=== PATIENT | female | born 1950 | race Hispanic/Latino ===

== ENCOUNTER 2021-07-31 11:30 | Inpatient (IN) | payer OTHER ==
--- NOTE | 2021-07-31 11:57 | RAD REPORT ---
EXAM DESCRIPTION: CT - Ct Stroke Brain Wo Cont - 07/31/2021 11:49 am CLINICAL HISTORY: Confusion/alteration of awareness COMPARISON: none TECHNIQUE: Computed axial tomography of the head was obtained. All CT scans are performed using dose optimization technique as appropriate and may include automated exposure control or mA/KV adjustment according to patient size. FINDINGS: An intracranial bleed is not seen . The ventricles are normal in caliber. No extra-axial fluid collection is noted. Small calcifications are present within the region of right thalamus/internal capsule. These are like ly not significant Fluid within the sinuses/ mastoids is not seen. IMPRESSION: No acute intracranial abnormality is seen. If patient's symptoms persist MRI of the bra in would be recommended. Nurse Spann of the emergency room was notified at 11:50 a.m. July 31, 2021
[2021-07-31 12:05] LABS: Absolute Lymphocytes (CBC) 2.7 K/uL (0.7-4.9); Basophils % 0.8 % (0-1.3); Hematocrit 42.9 % (36.0-45.0); Lymphocytes % 34.2 % (15.3-44.8); MPV 7.4 fL (7.6-11.3); RBC Red Blood Cell Count 4.62 M/uL (3.86-4.86)
[2021-07-31 12:06] LABS: Protime INR 0.89
[2021-07-31 12:18] LABS: ALT/SGPT 28 U/L (12-78); AST/SGOT 28 U/L (15-37); Albumin 4.2 g/dL (3.4-5.0); Alkaline Phosphatase 65 U/L (45-117); BUN Blood Urea Nitrogen 18 mg/dL (7-18); Bicarbonate 22 mmol/L (21-32); Bilirubin Direct 0.2 mg/dL (0-0.2); Bilirubin Total 0.9 mg/dL (0.2-1.0); Glucose Level 119 mg/dL (74-106); Magnesium 2.4 mg/dL (1.8-2.4); NT PRO-BNP 19 pg/mL (<125); Potassium 4.1 mmol/L (3.5-5.1); Protein, Total 8.3 g/dL (6.4-8.2); Sodium Level 141 mmol/L (136-145); Troponin (Emerg Dept Use Only) < 0.02 ng/mL (0.0-0.045)
--- NOTE | 2021-07-31 12:58 | RAD REPORT ---
EXAM DESCRIPTION: RAD - Chest Single View - 07/31/2021 12:34 pm CLINICAL HISTORY: DYSPNEA COMPARISON: CHEST PA AND LAT 2 VIEW dated 01/13/2010 FINDINGS: Lines: None. Lungs: No evidence of edema or pneumonia. Pleural: No significant pleural effusions or pneumothorax. Cardiac: The heart size is within normal limits. Bones: No acute fractures. Other: Battery pack overlying the left upper chest. IMPRESSION: No acute cardiopulmonary disease.
--- NOTE | 2021-07-31 13:10 | RAD REPORT ---
EXAM DESCRIPTION: MRI - Brain Wo Cont - 07/31/2021 1:01 pm CLINICAL HISTORY: amnesia COMPARISON: No comparisons TECHNIQUE: Sagittal T1-weighted images were obtained along with PD/heavily T2-weighted and T2-FLAIR images. Axial DWI and ADC mapping sequences were also obtained along with coronal heavily T2-weighted images were obtained. FINDINGS: No intracranial hemorrhage, mass or acute infarction. There is no edema or shift of midlin e structures. No extra-axial fluid collections. Signal voids are seen as a normal finding in the marc r intracranial vessels. Mild chronic small vessel ischemic changes. Mastoid air cells and paranasal sinuses are clear. IMPRESSION: No acute intracranial abnormality. Specifically, no evidence of acute infarct. Mild arborist jennifer small vessel ischemic changes.
--- NOTE | 2021-07-31 13:41 | ER ---
Nurse's Notes [facility] Name: Vanda Monge Age: 71 yrs Sex: Female : 1950 Arrival Date: 07/31/2021 Time: 11:31 Bed 17 Private MD: Wilber Monge E Diagnosis: Transient global amnesia Presentation: 07/31 11:55 Chief complaint: Spouse and/or significant other states: states that when he ss saw patient at home this morning, around 1030 she was seen sobbing and confused, not remembering her cardiology appointment yesterday and not knowing what year it was. Last known well was around 2130 yesterday evening. gave patient Aspirin 81 mg PO x 4 tablets. Coronavirus screen: Client denies travel out of the [place] in the last 14 days. Ebola Screen: Patient denies exposure to infectious person. Patient denies travel to an Ebola-affected area in the 21 days before illness onset. Initial Sepsis Screen: Does the patient meet any 2 criteria? No. Patient's initial sepsis screen is negative. Does the patient have a suspected source of infection? No. Patient's initial sepsis screen is negative. Risk Assessment: Do you want to hurt yourself or someone else? Patient reports no desire to harm self or others. Onset of symptoms was July 30, 2021. 11:55 Method Of Arrival: Wheelchair ss 11:55 Acuity: SHARON 2 ss 12:10 An acute neurological deficit is present. ss 12:10 Pre-hospital glucose is not applicable to this patient. ss Stroke Activation: Symptom onset > 6 hours Physician: Stroke Attending; Name: ; Notified At: ; Arrived At: Physician: Chief Stroke Resident; Name: ; Notified At: ; Arrived At: Physician: Stroke Resident; Name: ; Notified At: ; Arrived At: Physician: ED Attending; Name: ; Notified At: ; Arrived At: Physician: ED Resident; Name: ; Notified At: ; Arrived At: 11:55 Symptom onset was <24 hours and greater than >12 H ss Historical: - Allergies: 12:18 No Known Allergies; ss - Home Meds: 12:18 telmisartan 40 mg oral tab 1 tab once daily [Active]; ss - PMHx: 12:18 Hypertensive disorder; ss - PSHx: 12:18 tubal ligation; ss - Immunization history:: Client reports receiving the 2nd dose of the Covid vaccine. - Social history:: Smoking status: Patient denies any tobacco usage or history of. Screenin:31 Patient has been NPO before screening. The patient is alert, able to follow commands. ch5 The patient does not exhibit slurred or garbled speech The patient is not exhibiting difficulty speaking. The patient does not exhibit difficulty understanding words. The patient is able to swallow own secretions with no drooling or need for suction. Patient tolerated one teaspoon of water. No drooling, immediate coughing, gurgling, or clearing of the throat was noted. The patient tolerated 90mL of water. No drooling, immediate coughing, gurgling, or clearing of the throat was noted. The patient passed the bedside swallow screening. Oral medications may be given as ordered. Contact Physician for further diet orders. Assessment: 11:38 Reassessment: Code stroke called. 11:38 VAN Scoring: Arm Drift: Patients demonstrates NO arm weakness. Patient is VAN Negative. Visual Disturbance: No visual disturbance noted. Aphasia: No aphasia noted. Neglect: No neglect noted. T-PA (Activase) Screening: Contraindications: Patient reports onset of signs and symptoms of stroke greater than 6 hours ago: Yes. Vital Signs: 12:10 BP 145 / 97; Pulse 86; Resp 16; Temp 98.1(TE); Pulse Ox 99% on R/A; Weight 68.04 kg; ss Height 5 ft. 3 in. (160.02 cm); Pain 0/10; 13:00 BP 162 / 111; Pulse 90; Resp 18; Pulse Ox 100% on R/A; ch5 13:23 BP 157 / 104; Pulse 93; Resp 18; Pulse Ox 100% on R/A; ch5 13:48 BP 143 / 95; Pulse 92; Resp 16; Pulse Ox 100% on R/A; ch5 17:08 BP 121 / 81; Pulse 91; Resp 18; Pulse Ox 100% on R/A; ch5 12:10 Body Mass Index 26.57 (68.04 kg, 160.02 cm) NIH Stroke Scale Scores: 11:38 NIHSS Score: 0 11:40 NIHSS Score: 2 ch5 12:03 NIHSS Score: 1 jr8 ED Course: :31 Patient arrived in ED. am2 11:31 Wilber Monge MD is Private Physician. am2 11:38 Thermoregulation: warm blanket given to patient. ss 11:42 Brandon Dempsey PA is PHCP. jr8 11:42 Jonathan Germain MD is Attending Physician. jr8 11:49 Ct Stroke Brain Wo Cont In Process Unspecified. EDMS 11:53 Solis Granado, RN is Primary Nurse. ch5 11:55 Arm band placed on right wrist. ss 12:01 Triage completed. ss 12:34 XRAY Chest (1 view) In Process Unspecified. EDMS 13:01 MRI - Brain Wo Cont In Process Unspecified. EDMS 13:40 Olaf Go MD is Hospitalizing Provider. jr8 15:13 CT Head Angio In Process Unspecified. EDMS Administered Medications: No medications were administered Outcome: 13:40 Decision to Hospitalize by Provider. jr8 17:12 Admitted to Med/surg [facility] 17:12 Condition: stable 17:12 Instructed on the need for admit. 17:19 Patient left the ED. [facility] NIH Stroke Scale - NIH Stroke Score Date: 07/31/2021 Time: 11:38 Total Score = 0 1a. Level of Consciousness (LOC) - 0(Alert) 1b. Level of Consciousness (LOC) (Month \T\ Age) - 0(Both) 1c. LOC Commands (Open \T\ Closes Eyes/Supervisory Lifeguard) - 0(Both) 2. Best Gaze (Lateral Gaze Paresis) - 0(Normal) 3. Visual Field Loss - 0(No visual loss) 4. Facial Palsy - 0(Normal) 5a. Left Arm: Motor (10-second hold) - 0(No drift) 5b. Right Arm: Motor (10-second hold) - 0(No drift) 6a. Left Leg: Motor (5-second hold - always test supine) - 0(No drift) 6b. Right Leg: Motor (5-second hold - always test supine) - 0(No drift) 7. Limb Ataxia (finger/nose \T\ heel/galvez - test with eyes open) - 0(Absent) 8. Sensory Loss (pinprick arms/legs/face) - 0(Normal) 9. Best Language: Aphasia (description/naming/reading) - 0(No aphasia) 10. Dysarthria (speech clarity - read or repeat words) - 0(Normal) 11. Extinction and Inattention (visual/tactile/auditory/spatial/personal) - 0(No abnormality) Initials: ss NIH Stroke Scale - NIH Stroke Score Date: 07/31/2021 Time: 11:40 Total Score = 2 1a. Level of Consciousness (LOC) - 0(Alert) 1b. Level of Consciousness (LOC) (Month \T\ Age) - 2(Neither) 1c. LOC Commands (Open \T\ Closes Eyes/Supervisory Lifeguard) - 0(Both) 2. Best Gaze (Lateral Gaze Paresis) - 0(Normal) 3. Visual Field Loss - 0(No visual loss) 4. Facial Palsy - 0(Normal) 5a. Left Arm: Motor (10-second hold) - 0(No drift) 5b. Right Arm: Motor (10-second hold) - 0(No drift) 6a. Left Leg: Motor (5-second hold - always test supine) - 0(No drift) 6b. Right Leg: Motor (5-second hold - always test supine) - 0(No drift) 7. Limb Ataxia (finger/nose \T\ heel/galvez - test with eyes open) - 0(Absent) 8. Sensory Loss (pinprick arms/legs/face) - 0(Normal) 9. Best Language: Aphasia (description/naming/reading) - 0(No aphasia) 10. Dysarthria (speech clarity - read or repeat words) - 0(Normal) 11. Extinction and Inattention (visual/tactile/auditory/spatial/personal) - 0(No abnormality) Initials: [facility] NIH Stroke Scale - NIH Stroke Score Date: 07/31/2021 Time: 12:03 Total Score = 1 1a. Level of Consciousness (LOC) - 0(Alert) 1b. Level of Consciousness (LOC) (Month \T\ Age) - 1(One) 1c. LOC Commands (Open \T\ Closes Eyes/Supervisory Lifeguard) - 0(Both) 2. Best Gaze (Lateral Gaze Paresis) - 0(Normal) 3. Visual Field Loss - 0(No visual loss) 4. Facial Palsy - 0(Normal) 5a. Left Arm: Motor (10-second hold) - 0(No drift) 5b. Right Arm: Motor (10-second hold) - 0(No drift) 6a. Left Leg: Motor (5-second hold - always test supine) - 0(No drift) 6b. Right Leg: Motor (5-second hold - always test supine) - 0(No drift) 7. Limb Ataxia (finger/nose \T\ heel/galvez - test with eyes open) - 0(Absent) 8. Sensory Loss (pinprick arms/legs/face) - 0(Normal) 9. Best Language: Aphasia (description/naming/reading) - 0(No aphasia) 10. Dysarthria (speech clarity - read or repeat words) - 0(Normal) 11. Extinction and Inattention (visual/tactile/auditory/spatial/personal) - 0(No abnormality) Initials: jrLedy Signatures: Dispatcher [employer] EDMS Polina Duran RN RN Brandon Dempsey PA PA jr8 Jojo Iraheta am2 Solis Granado RN RN ch5 Corrections: (The following items were deleted from the chart) 12:35 12:35 CORONAVIRUS+SANGITAFrankieTREMAINE drawn and sent. 5 EDRI
--- NOTE | 2021-07-31 13:41 | EDPHYS ---
Physician Documentation [facility] Name: Vanda Monge Age: 71 yrs Sex: Female : 1950 Arrival Date: 07/31/2021 Time: 11:31 Bed 17 Private MD: Wilber Monge E ED Physician Jonathan Germain HPI: 07/31 13:46 This 71 yrs old Female presents to ER via Wheelchair with complaints of S/S of jr8 Possible Stroke. 13:46 Onset: The symptoms/episode began/occurred acutely, today. The symptoms are alleviated jr8 by nothing. The symptoms are aggravated by nothing. Associated signs and symptoms: The patient has no apparent associated signs or symptoms. Severity of symptoms: At their worst the symptoms were moderate in the emergency department the symptoms are unchanged. Patient's baseline: Neuro: alert and fully oriented, Motor: no deficits, Ambulation: walks without assistance, Speech: normal. The patient has not experienced similar symptoms in the past. The patient has not recently seen a physician. This is a 71-year-old female patient that presented to the emergency room with acute onset altered mentation. Family stated that patient had a distressing call earlier with family and since then has had amnestic like mentation. Patient's episode started about 1 hour prior to arrival.. Historical: - Allergies: 12:18 No Known Allergies; ss - Home Meds: 12:18 telmisartan 40 mg oral tab 1 tab once daily [Active]; ss - PMHx: 12:18 Hypertensive disorder; ss - PSHx: 12:18 tubal ligation; ss - Immunization history:: Client reports receiving the 2nd dose of the Covid vaccine. - Social history:: Smoking status: Patient denies any tobacco usage or history of. ROS: 13:46 Eyes: Negative for injury, pain, redness, and discharge, ENT: Negative for injury, jr8 pain, and discharge, Neck: Negative for injury, pain, and swelling, Cardiovascular: Negative for chest pain, palpitations, and edema, Respiratory: Negative for shortness of breath, cough, wheezing, and pleuritic chest pain, Abdomen/GI: Negative for abdominal pain, nausea, vomiting, diarrhea, and constipation, Back: Negative for injury and pain, MS/Extremity: Negative for injury and deformity, Skin: Negative for injury, rash, and discoloration. 13:46 Neuro: Positive for altered mental status. Exam: 12:03 Radiologist reports: No acute findings jr8 12:03 Head/Face: Normocephalic, atraumatic. Eyes: Pupils equal round and reactive to light, extra-ocular motions intact. Lids and lashes normal. Conjunctiva and sclera are non-icteric and not injected. Cornea within normal limits. Periorbital areas with no swelling, redness, or edema. ENT: Nares patent. No nasal discharge, no septal abnormalities noted. Tympanic membranes are normal and external auditory canals are clear. Oropharynx with no redness, swelling, or masses, exudates, or evidence of obstruction, uvula midline. Mucous membranes moist. Neck: Trachea midline, no thyromegaly or masses palpated, and no cervical lymphadenopathy. Supple, full range of motion without nuchal rigidity, or vertebral point tenderness. No Meningismus. Cardiovascular: Regular rate and rhythm with a normal S1 and S2. No gallops, murmurs, or rubs. Normal PMI, no JVD. No pulse deficits. Respiratory: Lungs have equal breath sounds bilaterally, clear to auscultation and percussion. No rales, rhonchi or wheezes noted. No increased work of breathing, no retractions or nasal flaring. Abdomen/GI: Soft, non-tender, with normal bowel sounds. No distension or tympany. No guarding or rebound. No evidence of tenderness throughout. Back: No spinal tenderness. No costovertebral tenderness. Full range of motion. Skin: Warm, dry with normal turgor. Normal color with no rashes, no lesions, and no evidence of cellulitis. MS/ Extremity: Pulses equal, no cyanosis. Neurovascular intact. Full, normal range of motion. 12:03 Neuro: Orientation: to person, place, Mentation: able to follow commands, Memory: immediate memory is intact, remote memory is intact. recent memory is impaired, Cranial nerves: CN I not tested, CN II- XII are normal as tested, visual hunt are intact. extraocular movements are intact, Facial palsy and sensory deficits are absent. Nystagmus is absent. Speech is clear and appropriate. Tongue strength is normal, Cerebellar function: normal finger to nose testing, heel to galvez testing is normal, Motor: moves all fours, strength is 5/5 in all extremities, Sensation: no obvious gross deficits, Gait: not tested. seizure activity, is not displayed by the patient, Abnormal movements: there are no abnormal movements. Vital Signs: 12:10 BP 145 / 97; Pulse 86; Resp 16; Temp 98.1(TE); Pulse Ox 99% on R/A; Weight 68.04 kg; ss Height 5 ft. 3 in. (160.02 cm); Pain 0/10; 13:00 BP 162 / 111; Pulse 90; Resp 18; Pulse Ox 100% on R/A; ch5 13:23 BP 157 / 104; Pulse 93; Resp 18; Pulse Ox 100% on R/A; ch5 13:48 BP 143 / 95; Pulse 92; Resp 16; Pulse Ox 100% on R/A; ch5 17:08 BP 121 / 81; Pulse 91; Resp 18; Pulse Ox 100% on R/A; ch5 12:10 Body Mass Index 26.57 (68.04 kg, 160.02 cm) NIH Stroke Scale Scores: 11:38 NIHSS Score: 0 11:40 NIHSS Score: 2 ch5 12:03 NIHSS Score: 1 jr8 MDM: 11:42 Patient medically screened. 8 13:37 Data reviewed: vital signs, nurses notes, lab test result(s), EKG, radiologic studies, [facility] CT scan, MRI, plain films. Data interpreted: Pulse oximetry: on room air is 100 %. Interpretation: normal. Counseling: I had a detailed discussion with the patient and/or guardian regarding: the historical points, exam findings, and any diagnostic results supporting the discharge/admit diagnosis, lab results, radiology results, the need for further work-up and treatment in the hospital. 13:46 ED course: Discussed with family that patient's MRI and head CT were both normal. No [facility] indication for acute stroke. Discussed with family that based on the labs, imaging and physical exam along with the story. Patient symptoms are suspicious for transient global amnesia. Discussed this with neurology as well we will put patient in observation and further work-up at this time to rule out any other acute pathology.. 07/31 11:42 Order name: Basic Metabolic Panel; Complete Time: 12:25 jr8 07/31 11:42 Order name: CBC with Diff; Complete Time: 12:25 jr8 07/31 11:42 Order name: LFT's; Complete Time: 12:25 jr8 07/31 11:42 Order name: Magnesium; Complete Time: 12:25 jr8 07/31 11:42 Order name: NT PRO-BNP; Complete Time: 12:25 jr8 07/31 11:42 Order name: PT-INR; Complete Time: 12:25 jr8 07/31 11:42 Order name: Troponin (emerg Dept Use Only); Complete Time: 12:25 jr8 07/31 12:00 Order name: Glucose, Ancillary Testing; Complete Time: 12:25 EDMS 07/31 12:35 Order name: SARS-COV-2 RT PCR; Complete Time: 13:46 EDMS 07/31 15:55 Order name: CBC with Automated Diff EDMS 07/31 15:55 Order name: CBC with Automated Diff EDMS 07/31 15:55 Order name: Comprehensive Metabolic Panel EDMS 07/31 15:55 Order name: Comprehensive Metabolic Panel EDMS 07/31 11:42 Order name: XRAY Chest (1 view); Complete Time: 13:25 jr8 07/31 11:42 Order name: EKG; Complete Time: 11:43 jr8 07/31 11:42 Order name: Cardiac monitoring; Complete Time: 11:57 jr8 07/31 11:42 Order name: EKG - Nurse/Tech; Complete Time: 12:27 jr8 07/31 11:42 Order name: IV Saline Lock; Complete Time: 11:57 jr8 07/31 11:42 Order name: Labs collected and sent; Complete Time: 11:57 jr8 07/31 11:42 Order name: O2 Per Protocol; Complete Time: 11:57 jr8 07/31 11:42 Order name: O2 Sat Monitoring; Complete Time: 11:57 jr8 07/31 11:48 Order name: Ct Stroke Brain Wo Cont; Complete Time: 12:25 EDMS 07/31 12:03 Order name: MRI - Brain Wo Cont; Complete Time: 13:25 jr8 07/31 14:52 Order name: CT Head Angio; Complete Time: 15:30 jr8 07/31 15:55 Order name: CONS Physician Consult EDMS 07/31 15:55 Order name: Heart Healthy EDMS Administered Medications: No medications were administered Disposition: 08/01 00:17 Co-signature as Attending Physician, Jonathan Germain MD I agree with the assessment and kdr plan of care. Disposition Summary: 07/31/21 13:40 Hospitalization Ordered Hospitalization Status: Observation jr8 Provider: Olaf Go Location: Telemetry/MedSurg (observation) jr8 Condition: Stable jr8 Problem: new jr8 Symptoms: are unchanged jr8 Bed/Room Type: Standard [facility] Room Assignment: 419(07/31/21 16:48) em1 Diagnosis - Transient global amnesia jr8 Forms: - Medication Reconciliation Form jr8 - SBAR form jr8 NIH Stroke Scale - NIH Stroke Score Date: 07/31/2021 Time: 11:38 Total Score = 0 1a. Level of Consciousness (LOC) - 0(Alert) 1b. Level of Consciousness (LOC) (Month \T\ Age) - 0(Both) 1c. LOC Commands (Open \T\ Closes Eyes/Daycare Teacher) - 0(Both) 2. Best Gaze (Lateral Gaze Paresis) - 0(Normal) 3. Visual Field Loss - 0(No visual loss) 4. Facial Palsy - 0(Normal) 5a. Left Arm: Motor (10-second hold) - 0(No drift) 5b. Right Arm: Motor (10-second hold) - 0(No drift) 6a. Left Leg: Motor (5-second hold - always test supine) - 0(No drift) 6b. Right Leg: Motor (5-second hold - always test supine) - 0(No drift) 7. Limb Ataxia (finger/nose \T\ heel/galvez - test with eyes open) - 0(Absent) 8. Sensory Loss (pinprick arms/legs/face) - 0(Normal) 9. Best Language: Aphasia (description/naming/reading) - 0(No aphasia) 10. Dysarthria (speech clarity - read or repeat words) - 0(Normal) 11. Extinction and Inattention (visual/tactile/auditory/spatial/personal) - 0(No abnormality) Initials: NIH Stroke Scale - NIH Stroke Score Date: 07/31/2021 Time: 11:40 Total Score = 2 1a. Level of Consciousness (LOC) - 0(Alert) 1b. Level of Consciousness (LOC) (Month \T\ Age) - 2(Neither) 1c. LOC Commands (Open \T\ Closes Eyes/Daycare Teacher) - 0(Both) 2. Best Gaze (Lateral Gaze Paresis) - 0(Normal) 3. Visual Field Loss - 0(No visual loss) 4. Facial Palsy - 0(Normal) 5a. Left Arm: Motor (10-second hold) - 0(No drift) 5b. Right Arm: Motor (10-second hold) - 0(No drift) 6a. Left Leg: Motor (5-second hold - always test supine) - 0(No drift) 6b. Right Leg: Motor (5-second hold - always test supine) - 0(No drift) 7. Limb Ataxia (finger/nose \T\ heel/galvez - test with eyes open) - 0(Absent) 8. Sensory Loss (pinprick arms/legs/face) - 0(Normal) 9. Best Language: Aphasia (description/naming/reading) - 0(No aphasia) 10. Dysarthria (speech clarity - read or repeat words) - 0(Normal) 11. Extinction and Inattention (visual/tactile/auditory/spatial/personal) - 0(No abnormality) Initials: [facility] NIH Stroke Scale - NIH Stroke Score Date: 07/31/2021 Time: 12:03 Total Score = 1 1a. Level of Consciousness (LOC) - 0(Alert) 1b. Level of Consciousness (LOC) (Month \T\ Age) - 1(One) 1c. LOC Commands (Open \T\ Closes Eyes/Daycare Teacher) - 0(Both) 2. Best Gaze (Lateral Gaze Paresis) - 0(Normal) 3. Visual Field Loss - 0(No visual loss) 4. Facial Palsy - 0(Normal) 5a. Left Arm: Motor (10-second hold) - 0(No drift) 5b. Right Arm: Motor (10-second hold) - 0(No drift) 6a. Left Leg: Motor (5-second hold - always test supine) - 0(No drift) 6b. Right Leg: Motor (5-second hold - always test supine) - 0(No drift) 7. Limb Ataxia (finger/nose \T\ heel/galvez - test with eyes open) - 0(Absent) 8. Sensory Loss (pinprick arms/legs/face) - 0(Normal) 9. Best Language: Aphasia (description/naming/reading) - 0(No aphasia) 10. Dysarthria (speech clarity - read or repeat words) - 0(Normal) 11. Extinction and Inattention (visual/tactile/auditory/spatial/personal) - 0(No abnormality) Initials: jr8 Signatures: Dispatcher [employer] EDMS Jonathan Germain MD MD kdr Martinez, Eric em1 Polina Duran RN RN ss Brandon Dempsey PA PA jr8 Corrections: (The following items were deleted from the chart) 07/31 11:48 11:43 Head Brain Wo Cont+CT.RAD.BRZ ordered. EDMS EDMS 12:35 12:07 CORONAVIRUS+MR.LAB.BRZ ordered. EDMS EDMS 16:48 13:40 jr8 em1
--- NOTE | 2021-07-31 15:25 | RAD REPORT ---
EXAM DESCRIPTION: CT - Head angio - 07/31/2021 3:13 pm CLINICAL HISTORY: MENTAL STATUS CHANGE COMPARISON: Ct Stroke Brain Wo Cont dated 07/31/2021 TECHNIQUE: CT angiography of the head was performed with MIPs. All CT scans are performed using dose optimization technique as appropriate and may include automated exposure control or mA/KV adjustment according to patient size. FINDINGS: Anterior circulation: No aneurysm or large vessel occlusion. No hemodynamically significant stenosis. No arteriovenous malf ormation identified. Posterior circulation: No aneurysm or large vessel occlusion. No hemodynamically significant stenosis. No arteriovenous malf ormation identified. IMPRESSION: No significant flow abnormality is detected.
[2021-07-31] MEDS ORDERED: ONDANSETRON 4 MG/2 ML VIAL IV PRN (15:47)
[2021-07-31] MEDS ORDERED: MORPHINE 2 MG/ML SYR IV PRN (15:47)
--- NOTE | 2021-07-31 16:12 | P.HP ---
Certification for Inpatient Patient admitted to: Inpatient With expected LOS: >2 Midnights Patient will require the following post-hospital care: None Practitioner: I am a practitioner with admitting privileges, knowledge of patient current condition, hospital course, and medical plan of care. Services: Services provided to patient in accordance with Admission requirements found in Title 42 Section 412.3 of the Code of Federal Regulations Patient History Date of Service: 07/31/21 Reason for admission: Amnesia History of Present Illness: Patient is a 71-year-old female came to the hospital with transient global amnesia. Patient was doing well but she woke up around 4 this morning. Patient had a lot of stresses about her grandchild being in the ICU and then her [id number] having acute hemorrhage after her delivery. She stated that they ended up going back to the hospital into and she has been spending time with them and so she was really anxious about what happened. Her was going to check on her, and she was not making any sense. She was not aware of anything going on or rounder. He was concern she had a stroke. He brought her into the hospital for further evaluation. Allergies No Known Allergies Allergy (Unverified 07/31/21 17:56) Home Medications: Alendronate Sodium 70 mg PO EVERY 7TH DAY 07/31/21 Alprazolam [Xanax] 0.5 mg PO PRN PRN 07/31/21 Cholecalciferol (Vitamin D3) [Vitamin D3] 125 mcg PO DAILY 07/31/21 Telmisartan 40 mg PO DAILY 07/31/21 - Past Medical/Surgical History -: HTN -: Anxiety disorder Past Surgical History: Patient denies surgical history - Family History Father Family History: Reviewed- Non-Contributory - Social History Smoking Status: Current some day smoker Alcohol use: No CD- Drugs: No Review of Systems 10-point ROS is otherwise unremarkable Physical Examination - Vital Signs Temperature: 98 F Blood Pressure: 140/70 Pulse: 88 Respirations: 18 Pulse Ox (%): 98 - Physical Exam General: Alert, Confused HEENT: Atraumatic, PERRLA, Mucous membr. moist/pink, EOMI, Sclerae nonicteric Neck: Supple, 2+ carotid pulse no bruit, No LAD, Without JVD or thyroid abnormality Respiratory: Clear to auscultation bilaterally, Normal air movement Cardiovascular: Regular rate/rhythm, Normal S1 S2, No murmurs Gastrointestinal: Normal bowel sounds, Soft and benign, Non-distended, No tenderness Musculoskeletal: No clubbing, No swelling, No tenderness Integumentary: No rashes Neurological: Normal speech, Normal tone, Sensation intact, Cranial nerves 3-12 intact, Normal affect, Other (Does not really seem to understand when interacting with other), Abnormal gait, Abnormal strength Lymphatics: No axilla or inguinal lymphadenopathy - Studies Laboratory Data (last 24 hrs) 07/31/21 11:48: PT 10.2, INR 0.89 07/31/21 11:48: WBC 7.90, Hgb 14.4, Hct 42.9, Plt Count 252 07/31/21 11:48: Sodium 141, Potassium 4.1, BUN 18, Creatinine 0.98, Glucose 119 H, Magnesium 2.4, Total Bilirubin 0.9, AST 28, ALT 28, Alkaline Phosphatase 65 Assessment & Plan - Problems (Diagnosis) (1) Transient global amnesia Current Visit: Yes Status: Acute (2) HTN (hypertension) Current Visit: Yes Status: Acute - Plan Plan: 1. Neurology consultation 2. MRI of the brain 3. Neurochecks q.4 hr 4. IV fluids 5. Anti epileptics 6. GI and DVT prophylaxis Discharge Plan: Home Plan to discharge in: Greater than 2 days - Advance Directives Does patient have a Living Will: Yes Does patient have a Durable POA for Healthcare: No - Code Status/Comfort Care Code Status Assessed: Yes Code Status: Full Code Critical Care: No Time Spent Managing PTS Care (In Minutes): 45
[2021-07-31] MEDS: ACETAMINOPHEN 500 MG TAB PO PRN (18:03)
[2021-07-31] MEDS: NA CHLORIDE 0.9% 1,000 ML IV SCH (18:05)
[2021-07-31 18:49] VITALS: BMI 25.7
[2021-07-31] MEDS ORDERED: MELATONIN 5 MG TABLET PO PRN (21:02)
[2021-08-01] MEDS: NA CHLORIDE 0.9% 1,000 ML IV SCH (06:00)
[2021-08-01 06:36] LABS: Basophils % 0.8 % (0-1.3); Hematocrit 37.2 % (36.0-45.0); Lymphocytes % 33.3 % (15.3-44.8); MPV 7.5 fL (7.6-11.3); RBC Red Blood Cell Count 3.96 M/uL (3.86-4.86)
[2021-08-01] MEDS: ACETAMINOPHEN 500 MG TAB PO PRN (06:38)
[2021-08-01 06:46] LABS: Albumin 3.4 g/dL (3.4-5.0); Bilirubin Total 0.5 mg/dL (0.2-1.0); Potassium 4.1 mmol/L (3.5-5.1); Protein, Total 6.9 g/dL (6.4-8.2)
[2021-08-01 09:49] VITALS: O2SAT 99
--- NOTE | 2021-08-01 12:58 | EEG ---
CHART: [id number] TEST ID#: [id number] DATE OF STUDY: 08/01/2021 THE EEG WAS RECORDED PORTABLE IN THE PATIENT'S ROOM ON A 17 CHANNEL MACHINE. ELECTRODES WERE APPLIED IN THE USUAL MANNER USING THE INTERNATIONAL 10-20 SYSTEM. THE WAKING BACKGROUND RHYTHM IN THIS RECORD CONSISTS OF VERY WELL DEVELOPED AND WELL ORGANIZED WAVES OF 10 HZ., MAXIMAL IN THE POSTERIOR HEAD REGIONS WHICH ATTENUATE NORMALLY WITH EYE OPENING. LOW-VOLTAGE 18-22 HZ ACTIVITY IS EXPRESSED IN THE FRONTAL REGIONS. THERE ARE NO FOCAL OR LATERALIZING FEATURES. NO EPILEPTIFORM ACTIVITY APPEARS. SLEEP DID NOT OCCUR. HYPERVENTILATION WAS NOT PERFORMED. PHOTIC STIMULATION PRODUCED FAIR DRIVING BILATERALLY. IMPRESSION: NORMAL EEG FOR THE AGE OF THE PATIENT IN [place].
[2021-08-01 14:38] VITALS: BP 140/70; TEMP 98
--- NOTE | 2021-08-01 20:14 | CON ---
History Of Present Illness: Ms. Monge is a 71-year-old right-handed patient with history of anxiety attacks, hypertension, who comes to [facility] with an episode of amnesia perhaps 1 0-12 hours long. She had recently received news about granddaughter being in the ICU with acute hemo rrhage and was also in receipt of bad news about situation at her hinduism when the event occurred. Sh e said the day before she was able to do her usual walk, which is up to about 2 hours to home, but wh en she got home she became more disoriented and confused and was actually able to speak to her husban d and children, but would repeat herself frequently. She did not have a face, arm, or leg focal weak ness in terms of drooping or 1 arm moving less than the other or same thing with her leg. She was sy mmetric. She was brought to [facility]. Head CT scan showed no acute ischemic or hemorrhag ic change. Brain MRI ruled out the presence of acute ischemic or hemorrhagic stroke. Does show a mi ld chronic small-vessel ischemic disease. Subsequent EEG was also unremarkable. Her CT angiogram sh owed no evidence of any occlusion, aneurysm, or abnormalities in her large vessels. Blood work showe d essentially unremarkable. Complete blood count with differential, no evidence of infection. Chemi stries did show mild dehydration with elevated chloride and glucose slightly elevated. GFR down to 5 6. Liver function studies were normal. COVID-19 test was negative. Chest x-ray showed no evidence of acute cardiopulmonary disease. Past Medical History: As indicated. Allergies: NO KNOWN DRUG ALLERGIES. Family History: Noncontributory. Review of Systems: Aside from mentioned above, no recent fevers, chills, nausea, vomiting, myalgias, arthralgias, rash, headache, weight change. No psychiatric issues except from anxiety treated with Xanax about once frandy ry month she takes a tablet. Physical Examination: Vital Signs: Blood pressure 140/70, pulse 88, respiratory rate 16, temperature 98, oxygen saturation 98% on room air. Weight 145 pounds, height 5 feet 3 inches, BMI 25.7. General: Ms. Monge is sitting at the side of her bed. Her is at bedside. HEENT: She is normocephalic, atraumatic. Sclerae anicteric. Oropharynx is pink and moist. Neck: Supple. Chest: Clear. Abdomen: Soft. Extremities: Show no clubbing, cyanosis, or edema. Neurologic: Alert, oriented to situation, place, and person. Cranial nerves 2 through 12 are intact . Motor examination, upper and lower extremities intact. Sensation intact to upper and lower extrem ities. Coordination, gait, balance, all unremarkable. Assessment: Ms. Monge is a 71-year-old patient who had an episode of transient global amnesia after receiving significant stressful family information about a granddaughter in situations at hinduism as p er her . She has no evidence of a stroke or neurological deficit. The EEG shows no epileptif orm activity. Blood work shows no evidence of infection. Chest is good and no evidence of pneumonia or infection. Plan: 1.The patient was told about stress management and given input about how to minimize the impact of i nformation she had received on her physiological condition. 2.She should have at least 8 hours of restorative sleep at night. Continue with least 1-2 hours of exercise daily as tolerated. 3.After discharge, she may want to consider following up with Psychiatry for additional coping techn iques and minimal use of medications. 4.She may follow up in Dr. Caal's clinic in 1 month if needed. CHAS/ADOLPH Voice ID: [id number] Report ID: [id number]
--- NOTE | 2021-08-04 02:34 | P.DS ---
Discharge Date: 08/01/21 Disposition: ROUTINE DISCHARGE Discharge Condition: GOOD Reason for Admission: Amnesia - Problems (1) Transient global amnesia Status: Acute (2) HTN (hypertension) Status: Acute Brief History of Present Illness: Patient is a 71-year-old female came to the hospital with transient global amnesia. Patient was doing well but she woke up around 4 this morning. Patient had a lot of stresses about her grandchild being in the ICU and then her [id number] having acute hemorrhage after her delivery. She stated that they ended up going back to the hospital into and she has been spending time with them and so she was really anxious about what happened. Her was going to check on her, and she was not making any sense. She was not aware of anything going on or rounder. He was concern she had a stroke. He brought her into the hospital for further evaluation. Hospital Course: Patient's mentation is improved. Patient's amnesia has resolved. Patient's neurologic workup was unremarkable. At this time, patient is stable for discharge. Vital Signs/Physical Exam: Temp Pulse Resp BP Pulse Ox 98 F 88 18 140/70 98 08/01/21 14:38 08/01/21 14:38 08/01/21 14:38 08/01/21 14:38 08/01/21 14:38 General: Alert, In no apparent distress, Oriented x3 Laboratory Data at Discharge: WBC 6.10 K/uL (4.3-10.9) D 08/01/21 06:12 Hgb 12.6 g/dL (12.0-15.0) 08/01/21 06:12 Hct 37.2 % (36.0-45.0) 08/01/21 06:12 Plt Count 239 K/uL (152-406) 08/01/21 06:12 PT 10.2 SECONDS (9.5-12.5) 07/31/21 11:48 INR 0.89 07/31/21 11:48 Sodium 144 mmol/L (136-145) 08/01/21 06:12 Potassium 4.1 mmol/L (3.5-5.1) 08/01/21 06:12 BUN 23 mg/dL (7-18) H 08/01/21 06:12 Creatinine 0.98 mg/dL (0.55-1.3) 08/01/21 06:12 Glucose 110 mg/dL (74-106) H 08/01/21 06:12 Magnesium 2.4 mg/dL (1.8-2.4) 07/31/21 11:48 Total Bilirubin 0.5 mg/dL (0.2-1.0) 08/01/21 06:12 AST 18 U/L (15-37) 08/01/21 06:12 ALT 26 U/L (12-78) 08/01/21 06:12 Alkaline Phosphatase 57 U/L (45-117) 08/01/21 06:12 Home Medications: Alendronate Sodium 70 mg PO EVERY 7TH DAY 07/31/21 Alprazolam [Xanax] 0.5 mg PO PRN PRN 07/31/21 Cholecalciferol (Vitamin D3) [Vitamin D3] 125 mcg PO DAILY 07/31/21 Telmisartan 40 mg PO DAILY 07/31/21 Physician Discharge Instructions: OK TO DC IV AND DC HOME FOLLOW-UP WITH PRIMARY CARE PROVIDER IN 1-2 WEEKS FOLLOW-UP WITH Neurology IN 1-2 WEEKS RETURN TO THE ER IF symptoms worsens CALL or TEXT DR. VALDEZ AT [phone] IF ANY QUESTIONS REGARDING HOSPITAL STAY. PLEASE CALL THE FLOOR AT [phone] IF ANY MEDICATION OR NURSING QUESTIONS. Diet: AHA Activity: Fall precautions Followup: Adria Caal MD [ASSOCIATE-ACTIVE - CAN ADMIT] - 1-2 Weeks (Call to schedule an appointment ) Wilber Monge MD [Primary Care Provider] - 1-2 Weeks Time spent managing pt's care (in minutes): 35
== END 2021-08-01 15:26 | disposition home or self-care (01) | DRG 72 ==
LOC: ER 11:30 → ERHOLD 15:48 → 4TH 17:06
PROVIDERS: ADMIT Hospitalist; ATTEND Hospitalist
DX: G45.4 Transient global amnesia (principal); F17.200 Nicotine dependence, unspecified, uncomplicated; I10 Essential (primary) hypertension; Z88.8 Allergy status to other drugs, medicaments and biological substances; Z98.51 Tubal ligation status; Z79.899 Other long term (current) drug therapy; Z20.822 Contact with and (suspected) exposure to COVID-19
CPT/HCPCS: 36415; 70450; 70496; 70551; 71045; 80048; 80053; 80076; 82947; 83735; 83880; 84484; 85025; 85610; 93005; 95819; 99285; J7030; Q9967; U0003